=== PATIENT | female | born 1945 | race Caucasian/White ===

== ENCOUNTER 2017-03-10 16:38 | Emergency (ER) | payer OTHER ==
[~2017-03-10] VITALS: Ht 144.8 cm; Wt 48.0 kg
[2017-03-10 16:40] VITALS: BP 118/56; PULSE 88; RESP 16; TEMP 98; O2SAT 97
[2017-03-10] MEDS ORDERED: MORPHINE SULFATE 4 MG/ML INJ IV PUSH ONE (19:00)
[2017-03-10] MEDS ORDERED: ONDANSETRON HCL 4 MG/2 ML VIAL ONE (19:17)
--- NOTE | 2017-03-10 19:17 | RADRPT ---
EXAM DATE/TIME: 03/10/2017 19:11 [facility] COMPARISON: No previous studies available for comparison. INDICATIONS : Right knee pain and swelling. No prior trauma. MEDICAL HISTORY : Arthritis. SURGICAL HISTORY : None. ENCOUNTER: Initial ACUITY: 2 days PAIN SCORE: 10/10 LOCATION: Right knee. FINDINGS: 4 views of the right knee demonstrate no fracture or dislocation. Mineralization is within normal braun its. There is a large joint effusion. Very small osteophytes are present. There is no joint space marcelina rowing. There is mineralization within the menisci and there is mineralization in the proximal gastro cnemius muscle. Subcutaneous edema is present. CONCLUSION: 1. No fracture is identified. However, there is a large joint effusion. 2. 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 Aston Cunningham MD on March 10, 2017 at 19:13 Board Certified Radiologist. This report was verified electronically.
[2017-03-10] MEDS ORDERED: ONDANSETRON HCL 4 MG/2 ML VIAL IV PUSH ONE (19:30)
[2017-03-10 19:49] LABS: BASOPHIL % 0.4 % (0.0-2.0); EOSINOPHIL % 0.1 % (0.0-4.0); HEMATOCRIT 34.5 % (35.0-46.0); HEMO FLAGS DIFF FINAL; LYMPH % 37.1 % (9.0-44.0); LYMPHOCYTE # 2.8 TH/MM3 (1.0-4.8); MEAN CELL VOLUME 88.2 FL (80.0-100.0); MEAN CORPUSCULAR HEMOGLOBIN 29.2 PG (27.0-34.0); MEAN CORPUSCULAR HGB CONC 33.1 % (32.0-36.0); NEUT % 52.4 % (16.0-70.0); PLATELET COUNT 181 TH/MM3 (150-450); RED BLOOD COUNT 3.91 MIL/MM3 (4.00-5.30); RED CELL DISTRIBUTION WIDTH 14.3 % (11.6-17.2); WHITE BLOOD COUNT 7.5 TH/MM3 (4.0-11.0)
[2017-03-10 19:59] LABS: APTT (PATIENT) 27.5 SEC (24.3-30.1); PROTHROMBIN TIME - PATIENT 10.5 SEC (9.8-11.6)
[2017-03-10 20:04] LABS: BICARBONATE 24.8 MEQ/L (21.0-32.0); POTASSIUM 3.5 MEQ/L (3.5-5.1)
[2017-03-10] MEDS ORDERED: CLINDAMYCIN INJ 600 MG in SODIUM CHLORIDE 0.9% INJ 100 ML IV ONE (21:15)
--- NOTE | 2017-03-10 21:44 | RADRPT ---
EXAM DATE/TIME: 03/10/2017 20:35 [facility] COMPARISON: No previous studies available for comparison. INDICATIONS : Right leg swelling and pain. MEDICAL HISTORY : Chronic lymphocytic leukemia. Measles. Irregular heartbeat. SURGICAL HISTORY : Bilateral foot surgery. Muscle plexi. ENCOUNTER: Initial ACUITY: 4 - 6 days PAIN SCORE: 5/10 LOCATION: Right leg. TECHNIQUE: Venous ultrasound of the leg was performed from the inguinal ligament to the proximal calf. Real-tosha e, color Doppler and spectral tracing, compression and augmentation techniques were used. FINDINGS: There is normal compressibility of the deep venous system from the inguinal region to the proximal ca lf. No echogenic clot is seen in the lumen of the common femoral, femoral, popliteal, and posterior tibial veins. There is a normal response of the venous system to proximal and distal augmentation an d respiration. CONCLUSION: No DVT is identified in the right lower extremity. Aston Cunningham MD on March 10, 2017 at 21:10 Board Certified Radiologist. This report was verified electronically.
[2017-03-10] MEDS ORDERED: CLIN1CAP6 PO (22:05)
--- NOTE | 2017-03-10 22:05 | PD ---
HPI Chief Complaint: Edema Time Seen by Provider: 18:41 Travel History International Travel<30 days: No Contact w/Intl Traveler<30days: No Traveled to known affect area: No History of Present Illness HPI Patient is a 72-year-old female comes in complaining of pain and swelling to her right leg. She says it started suddenly 2 days ago. She said that she developed pain to the back of her leg and it spread up the back of her leg and into her knee. She says it became very swollen and red. It is very painful, and she has been taking tramadol for the pain. She denies any chest pain or shortness of breath. She went to an urgent care today who suggested she come to the emergency Department to rule out a blood clot. She has no history of blood clot in the past. [facility] Past Medical History Blood Disorders: No Anxiety: No Heart Rhythm Problems: Yes (MVP) Cancer: No Cardiovascular Problems: Yes Chemotherapy: No Endocrine: No Genitourinary: Yes Immune Disorder: Yes (CHRONIC LYMPHOCTIC LEUKEMIA) Musculoskeletal: Yes Neurologic: No Psychiatric: Yes Respiratory: No Radiation Therapy: No Social History Alcohol Use: No Tobacco Use: No Substance Use: No Allergies-Medications (Allergen,Severity, Reaction): Coded Allergies: No Known Allergies (Verified , 03/10/17) Uncoded Allergies: ROCK SHRIMP (Allergy, Severe, RED STREAKS, 12/18/05) Reported Meds & Prescriptions Reported Meds & Active Scripts Active Review of Systems Except as stated in HPI: all other systems reviewed are Neg General / Constitutional: No: Fever, Chills HENT: No: Headaches, Lightheadedness Cardiovascular: No: Chest Pain or Discomfort Respiratory: No: Shortness of Breath Gastrointestinal: No: Nausea, Vomiting, Abdominal Pain Musculoskeletal: Positive: Edema, Pain Skin: Positive Change in Pigmentation Neurologic: No: Weakness, Dizziness, Syncope Physical Exam Narrative GENERAL: Awake and alert, in no acute distress. SKIN: Focused skin assessment warm/dry. Right leg is erythematous from the ankle to the knee, warm to the touch. There is no abscess, no area of fluctuance. HEAD: Atraumatic. Normocephalic. EYES: Pupils equal and round. No scleral icterus. ENT: Mucous membranes pink and moist. NECK: Trachea midline. No JVD. CARDIOVASCULAR: Regular rate and rhythm. No murmur appreciated. RESPIRATORY: No accessory muscle use. Clear to auscultation. Breath sounds equal bilaterally. MUSCULOSKELETAL: No obvious deformities. No clubbing. No cyanosis. Large edema of the right leg. Tender to palpation of the right calf and right knee. Pain with flexion of the knee. Pedal pulses intact. NEUROLOGICAL: Awake and alert. No obvious cranial nerve deficits. Motor grossly within normal limits. Normal speech. PSYCHIATRIC: Appropriate mood and affect; insight and judgment normal. Data Data Last Documented VS Vital Signs Date Time Temp Pulse Resp B/P Pulse Ox O2 Delivery O2 Flow Rate FiO2 03/10/17 16:40 98.0 88 16 118/56 97 Orders Complete Blood Count With Diff (03/10/17 18:48) Basic Metabolic Panel (Bmp) (03/10/17 18:48) Act Partial Throm Time (Ptt) (03/10/17 18:48) Prothrombin Time / Inr (Pt) (03/10/17 18:48) Us Leg Venous Doppler (03/10/17 ) Knee, Complete (4vws) (03/10/17 ) Iv Access Insert/Monitor (03/10/17 18:48) Morphine Inj (Morphine Inj) (03/10/17 19:00) Ondansetron Inj (Zofran Inj) (03/10/17 19:30) Ondansetron Inj (Zofran Inj) (03/10/17 19:17) Clindamycin Inj (Cleocin Inj) (03/10/17 21:15) Labs Laboratory Tests Test 03/10/17 19:15 White Blood Count 7.5 TH/MM3 Red Blood Count 3.91 MIL/MM3 Hemoglobin 11.4 GM/DL Hematocrit 34.5 % Mean Corpuscular Volume 88.2 FL Mean Corpuscular Hemoglobin 29.2 PG Mean Corpuscular Hemoglobin 33.1 % Concent Red Cell Distribution Width 14.3 % Platelet Count 181 TH/MM3 Mean Platelet Volume 9.7 FL Neutrophils (%) (Auto) 52.4 % Lymphocytes (%) (Auto) 37.1 % Monocytes (%) (Auto) 10.0 % Eosinophils (%) (Auto) 0.1 % Basophils (%) (Auto) 0.4 % Neutrophils # (Auto) 4.0 TH/MM3 Lymphocytes # (Auto) 2.8 TH/MM3 Monocytes # (Auto) 0.8 TH/MM3 Eosinophils # (Auto) 0.0 TH/MM3 Basophils # (Auto) 0.0 TH/MM3 CBC Comment DIFF FINAL Differential Comment Prothrombin Time 10.5 SEC Prothromb Time International 1.0 RATIO Ratio Activated Partial 27.5 SEC Thromboplast Time Sodium Level 138 MEQ/L Potassium Level 3.5 MEQ/L Chloride Level 103 MEQ/L Carbon Dioxide Level 24.8 MEQ/L Anion Gap 10 MEQ/L Blood Urea Nitrogen 12 MG/DL Creatinine 0.52 MG/DL Estimat Glomerular Filtration 116 ML/MIN Rate Random Glucose 94 MG/DL Calcium Level 9.3 MG/DL MDM Medical Decision Making Medical Screen Exam Complete: Yes Emergency Medical Condition: Yes Differential Diagnosis DVT versus cellulitis versus arthritis Narrative Course Patient is a 72-year-old female comes in complaining of pain and swelling to her right leg. Exam shows erythema and warmth of the right leg with tenderness to palpation of the right calf and knee. IV established, labs sent. Labs show an elevated monocyte count, no other acute abnormalities. X-ray of the knee shows degenerative changes as well as CPPD. Last 24 hours Impressions Lower Extremity Ultrasound 03/10/17 0000 Signed Impressions: Service Date/Time: Friday, March 10, 2017 20:35 - CONCLUSION: No DVT is identified in the right lower extremity. Aston Cunningham MD Knee X-Ray 03/10/17 0000 Signed Impressions: Service Date/Time: Friday, March 10, 2017 19:11 - CONCLUSION: 1. No fracture is identified. However, there is a large joint effusion. 2. 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 Aston Cunningham MD US is negative for DVT. Patient given Clindamycin for possible cellulitis component. Symptoms likely due to CPPD. She will be discharged with prescription for Clindamycin. She is advised to return in 1 week for repeat ultrasound if her symptoms have not improved. Advised to follow up with her doctors. She has Tramadol at home, which she can take for pain. She was given Morphine here and does not want anything else at this point. She is advised to return to the ED at any time for any worsening symptoms. Diagnosis Primary Impression: Cellulitis Qualified Code: L03.115 - Cellulitis of right lower extremity Additional Impression: Pseudogout Patient Instructions: Cellulitis (ED), General Instructions, Pseudogout (ED) Additional Instructions: Take pain medicine as needed for pain. Take all of her antibiotics. Follow-up with her doctors. If her symptoms have not improved in one week, return for a repeat ultrasound. If any time here symptoms become worse, return to the ED immediately. Scripts Clindamycin 300 Mg Pva657 Mg PO Q8H 7 Days Ref 0 Prov:Arely Monroe MD 03/10/17 Disposition: 01 DISCHARGE HOME Condition: Stable Arely Monroe MD Mar 10, 2017 22:05
[2017-03-10 22:19] VITALS: BP 124/78
== END 2017-03-10 22:23 | disposition home or self-care (01) ==
LOC: NEPD 16:38
DX: L03.115 Cellulitis of right lower limb (principal); M11.261 Other chondrocalcinosis, right knee
CPT/HCPCS: 73564; 80048; 85025; 85610; 85730; 93971; 96365; 96375; 99285; J2270; J2405